=== PATIENT | male | born 1985 | race Caucasian/White ===

== ENCOUNTER 2019-08-26 09:29 | Inpatient (IN) | payer MEDICAID ==
[~2019-08-26] VITALS: Ht 182.9 cm; Wt 67.3 kg
[2019-08-26] MEDS ORDERED: SODIUM CHLORIDE 0.9% 1,000 ML IV ONE ×2 (09:51→10:45)
[2019-08-26 10:26] LABS: Hematocrit 51.4 % (41.0-53.0); Hemoglobin 17.5 g/dL (13.5-17.5); Mean Corpuscular Hemoglobin 30.9 pg (28.0-32.0); Mean Corpuscular Volume 90.8 fL (80.0-100.0); Platelet Count (auto) 448 10^3/uL (140-450); Red Blood Cells 5.66 10^6/uL (4.5-5.90); Red Cell Distribution Width 12.5 % (11.8-14.3)
[2019-08-26 10:31] LABS: Basophils % (manual) 0 (0.0-2.0); Blast Cells 0; Eosinophils % (manual) 0 (0-7); Metamyelocytes % 0; Myelocytes % 0; Promyelocytes % 0; Reactive Lymphocytes 0
[2019-08-26 10:42] LABS: Albumin 4.1 g/dL (3.4-5.0); Calcium 9.1 mg/dL (8.5-10.1); Potassium 4.8 mmol/L (3.5-5.1)
[2019-08-26 10:45] LABS: BUN/Creatinine Ratio 19.6
[2019-08-26] MEDS ORDERED: PROCHLORPERAZINE EDISYLATE 5 MG/ML 2ML VIAL IV ONE (10:45)
[2019-08-26 10:49] LABS: Bilirubin, Total 1.3 mg/dL (0.2-1.0); Total Protein 9.1 g/dL (6.4-8.2)
[2019-08-26 11:01] LABS: Band Neutrophils % (manual) 10; Lymphocytes % (manual) 3 (10.0-50.0); Monocytes % (manual) 3 (0-12)
[2019-08-26 11:52] LABS: Urine Bacteria NONE SEEN /hpf (None Seen); Urine Blood Negative /uL (Negative); Urine Specific Gravity 1.025 (1.001-1.035); Urine WBC <1 /hpf (0 - 3)
[2019-08-26] MEDS ORDERED: InsuLIN R (HUMAN) 100 UNITS in SODIUM CHL 0.9% 99 ML IV SCH ×2 (11:56→13:28)
[2019-08-26] MEDS ORDERED: ACCU-CHEK COMFORT CURVE STRIP VI SCH (12:00)
[2019-08-26] MEDS ORDERED: DEXTROSE (50%) 50ML SYRG IV PRN ×2 (12:00→13:30)
[2019-08-26] MEDS ORDERED: METOCLOPRAMIDE HCL 5MG/ml INJ 2ml VIAL IV PRN (13:30)
[2019-08-26] MEDS ORDERED: traMADol HCL 50 MG TAB PO PRN (13:30)
[2019-08-26] MEDS ORDERED: MORPHINE SULFATE 4 MG/ML SYR/VIAL IV PRN (13:30)
[2019-08-26] MEDS ORDERED: PANTOPRAZOLE 40 MG/10 ML VIAL INJ IV ONE (13:30)
[2019-08-26] MEDS ORDERED: MORPHINE SULF INJ 2 MG/ML SYRINGE 1ML IV PRN (13:30)
[2019-08-26] MEDS ORDERED: NITROGLYCERIN 0.4 MG SL TAB SL PRN (13:30)
[2019-08-26] MEDS: ACCU-CHEK COMFORT CURVE STRIP VI SCH ×8 (13:40→23:55)
[2019-08-26] MEDS: SODIUM CHLORIDE 0.9% 1,000 ML IV SCH ×3 (13:53→18:38)
[2019-08-26 17:10] VITALS: BP 108/61
--- NOTE | 2019-08-26 17:10 | NUR ---
PT RECEIVED FROM ER AT THIS TIME TO ROOM 263. SEE FLOW SHEET FOR MORE DETAILS, VSS.
[2019-08-26] MEDS ORDERED: SODIUM CHLORIDE 0.9% 1,000 ML IV SCH (17:28)
[2019-08-26 18:00] VITALS: BP 112/57
[2019-08-26 18:30] VITALS: BP 116/64
--- NOTE | 2019-08-26 19:10 | NUR ---
OPENING SHIFT RECEIVED REPORT FROM DAY SHIFT RN. ASSUMED CARE OF PATIENT. PATIENT IN BED WATCHING TV WITH NO SIGNS OR SYMPTOMS OF SOB, PAIN OR DISTRESS. CURRENTLY ON ROOM AIR, 02 SAT - 99%. RIGHT ANTECUBITAL IV - CLEAN/DRY/INTACT. UPDATED PATIENT ON PLAN OF CARE. REPOSITIONED FOR COMFORT. BED IN LOWEST POSITION, SIDE RAILS UP X2, CALL LIGHT WITHIN REACH. WILL CONTINUE TO MONITOR.
--- NOTE | 2019-08-26 19:30 | NUR ---
INSULIN GTT AC - 181, TITRATED INSULIN GTT - 2.0 UNITS PER INSULIN GTT PROTOCOL. WILL CONTINUE TO MONITOR.
[2019-08-26 19:40] VITALS: BP 107/55
--- NOTE | 2019-08-26 20:10 | NUR ---
HOSPITALIST PAGED HOSPITALIST, AWAITING CALL BACK.
--- NOTE | 2019-08-26 20:18 | NUR ---
HOSPITALIST CALLED BACK RECEIVED ORDERS FOR A CBC, LACTIC ACID, UA, BLOOD AND SPUTUM CULTURES. START LEVAQUIN 500 QD AND TYLENOL 650 PRN Q6H.
[2019-08-26] MEDS: ACETAMINOPHEN 325 MG TAB PO PRN (20:53)
[2019-08-26] MEDS ORDERED: ACETAMINOPHEN 325 MG TAB PO ONE (20:57)
[2019-08-26 21:14] LABS: Hematocrit 42.9 % (41.0-53.0); Hemoglobin 14.6 g/dL (13.5-17.5); Mean Corpuscular Hgb Conc. 34.1 g/dL (32.0-36.0); Platelet Count (auto) 370 10^3/uL (140-450); Red Blood Cells 4.71 10^6/uL (4.5-5.90); Red Cell Distribution Width 12.5 % (11.8-14.3)
[2019-08-26 21:15] LABS: Basophils % (manual) 0 (0.0-2.0); Blast Cells 0; Eosinophils % (manual) 0 (0-7); Metamyelocytes % 0; Myelocytes % 0; Promyelocytes % 0; Reactive Lymphocytes 0
[2019-08-26] MEDS: LEVOFLOXACIN 500MG 100 ML IV SCH (21:28)
[2019-08-26 21:33] LABS: Band Neutrophils % (manual) 8; Lymphocytes % (manual) 14 (10.0-50.0); Monocytes % (manual) 7 (0-12)
--- NOTE | 2019-08-26 23:54 | NUR ---
INSULIN GTT BLOOD SUGAR - 141, TITRATED INSULIN GTT TO 1UNIT/HR, PER INSULIN GTT PROTOCOL. WILL CONTINUE TO MONITOR.
[2019-08-26 23:56] VITALS: BP 100/51
[2019-08-27] MEDS: ACCU-CHEK COMFORT CURVE STRIP VI SCH ×11 (01:31→23:53)
[2019-08-27] MEDS: SODIUM CHLORIDE 0.9% 1,000 ML IV SCH ×3 (02:35→18:01)
[2019-08-27 03:44] VITALS: BP 93/61
[2019-08-27 05:31] LABS: Hematocrit 42.9 % (41.0-53.0); Hemoglobin 14.9 g/dL (13.5-17.5); Mean Corpuscular Hemoglobin 31.5 pg (28.0-32.0); Mean Corpuscular Hgb Conc. 34.6 g/dL (32.0-36.0); Platelet Count (auto) 318 10^3/uL (140-450); Red Blood Cells 4.71 10^6/uL (4.5-5.90); Red Cell Distribution Width 12.8 % (11.8-14.3); White Blood Cell 8.6 10^3/uL (4.4-10.8)
[2019-08-27 05:44] LABS: Basophils % (manual) 0 (0.0-2.0); Blast Cells 0; Metamyelocytes % 0; Myelocytes % 0; Promyelocytes % 0; Reactive Lymphocytes 0
[2019-08-27 05:47] LABS: Albumin 2.7 g/dL (3.4-5.0); Calcium 8.3 mg/dL (8.5-10.1); Magnesium 1.9 mg/dL (1.6-2.6); Potassium 3.6 mmol/L (3.5-5.1)
[2019-08-27 05:51] LABS: BUN/Creatinine Ratio 16.9; Bilirubin, Total 0.8 mg/dL (0.2-1.0); Total Protein 6.3 g/dL (6.4-8.2)
--- NOTE | 2019-08-27 06:00 | NUR ---
INSULIN GTT BLOOD SUGAR - 116, INSULIN GTT TITRATED DOWN TO 0.5UNITS/HR, PER INSULIN GTT PROTOCOL. WILL CONTINUE TO MONITOR.
[2019-08-27 06:55] LABS: Band Neutrophils % (manual) 13; Eosinophils % (manual) 1 (0-7); Lymphocytes % (manual) 19 (10.0-50.0); Monocytes % (manual) 6 (0-12)
--- NOTE | 2019-08-27 07:24 | NUR ---
END OF SHIFT REPORT GIVEN TO DAY SHIFT RN. CARE ENDORSED.
--- NOTE | 2019-08-27 07:30 | NUR ---
Patient's accucheck 101 mg/dl, Insulin drip maintained at 0.5ml/hr
[2019-08-27 08:00] VITALS: BP 97/56
--- NOTE | 2019-08-27 08:00 | NUR ---
Patient's accucheck 133mg/dl, increased Insulin drip to 1 ml/hr. Will continue to monitor.
--- NOTE | 2019-08-27 08:00 | NUR ---
Opening Shift Note Assumed care of patient, awake and alert. No S/S of distress/SOB or pain. See interventions for complete assessment. Bed locked on low position, side rails up x2, bed alarms on at all times, call de paz within reach, instructed on POC and to call for assist PRN, will continue to monitor for changes Q1hr and PRN.
--- NOTE | 2019-08-27 08:30 | NUR ---
urine sample sent to lab
[2019-08-27 08:33] LABS: Urine Bacteria FEW /hpf (None Seen); Urine Blood Negative /uL (Negative); Urine Mucus FEW (None Seen); Urine WBC 1 /hpf (0 - 3)
--- NOTE | 2019-08-27 09:00 | NUR ---
Patient's accucheck 199mg/dl, increased Insulin drip to 1.5ml. Will continue to monitor.
[2019-08-27] MEDS: LEVOFLOXACIN 500MG 100 ML IV SCH (09:15)
[2019-08-27] MEDS ORDERED: PANTOPRAZOLE 40 MG/10 ML VIAL INJ IV SCH (10:00)
--- NOTE | 2019-08-27 10:30 | NUR ---
Patient's accucheck 208mg/dl, increased Insulin drip to 2ml/hr. Will continue to monitor.
--- NOTE | 2019-08-27 11:58 | NUR ---
Patient's blood sugar 143mg/dl, decreased Insulin drip to 1ml/hr. Will continue to monitor.
[2019-08-27 12:00] VITALS: BP 109/65
[2019-08-27] MEDS: ACETAMINOPHEN 325 MG TAB PO PRN (12:04)
--- NOTE | 2019-08-27 12:04 | NUR ---
Patient's complaining of headache, Tylenol PRN given. Will continue to monitor.
--- NOTE | 2019-08-27 12:50 | NUR ---
Dr Skaggs at bedside, updated on patient's status. Patient seen and examined. Received verbal orders to start patient on Lantus and discontinue Insulin drip few hours after giving Lantus and transfer patient to Telemetry floor. Orders read back and verified. Will carry out.
[2019-08-27] MEDS ORDERED: INSULIN LANTUS (GLARGINE) 1 /0.01ml (100units/ml) SC ONE (13:00)
[2019-08-27] MEDS ORDERED: DEXTROSE (50%) 50ML SYRG IV PRN (13:00)
--- NOTE | 2019-08-27 13:30 | NUR ---
Patient's blood sugar 185mg/dl, increased Insulin drip to 2ml/hr. Will continue to monitor.
[2019-08-27 16:00] VITALS: BP 95/56
--- NOTE | 2019-08-27 16:30 | NUR ---
Insulin drip discontinued.
[2019-08-27] MEDS: InsuLIN REG 1unit/0.01ml Soln (100units/ml) SC SCH (18:00)
[2019-08-27 20:00] VITALS: BP 113/66
--- NOTE | 2019-08-27 20:00 | NUR ---
Opening Shift Note Assumed care of patient, awake and alert. No S/S of distress/SOB. Has some pain when he is doing some deep breaths, feels congested. VS stable. Sputum specimen was collected and was sent. Full assessment done. Mother at bedside. Instructed on POC and to call for assist PRN, will continue to monitor for changes Q1hr and PRN.
[2019-08-27] MEDS: INSULIN LANTUS (GLARGINE) 1 /0.01ml (100units/ml) SC SCH (22:15)
[2019-08-28] VITALS: BP 109/69
--- NOTE | 2019-08-28 | NUR ---
ROUNDS Patient is asleep, resting comfortably VS stable will continue to monitor
[2019-08-28] MEDS: InsuLIN REG 1unit/0.01ml Soln (100units/ml) SC SCH ×4 (00:12→17:45)
[2019-08-28] MEDS: SODIUM CHLORIDE 0.9% 1,000 ML IV SCH ×5 (01:24→20:44)
[2019-08-28 04:00] VITALS: BP 105/68
[2019-08-28] MEDS: ACCU-CHEK COMFORT CURVE STRIP VI SCH ×3 (05:30→17:45)
[2019-08-28 05:56] LABS: Basophils # (auto) 0 uL; Basophils % (auto) 0.2 % (0.0-2.0); Eosinophils # (auto) 0.1 uL; Eosinophils % (auto) 1.5 % (0.0-7.0); Hematocrit 36.5 % (41.0-53.0); Lymphocytes # (auto) 1.9 uL; Lymphocytes % (auto) 22.7 % (10.0-50.0); Mean Corpuscular Hemoglobin 31.9 pg (28.0-32.0); Mean Corpuscular Hgb Conc. 35.7 g/dL (32.0-36.0); Mean Corpuscular Volume 89.3 fL (80.0-100.0); Monocytes # (auto) 1.1 uL; Monocytes % (auto) 13.5 % (0.0-12.0); Neutrophils # (auto) 5.1 uL; Neutrophils % (auto) 62.1 % (37.0-80.0); Platelet Count (auto) 281 10^3/uL (140-450); Red Blood Cells 4.09 10^6/uL (4.5-5.90); Red Cell Distribution Width 12.1 % (11.8-14.3); White Blood Cell 8.3 10^3/uL (4.4-10.8)
[2019-08-28 06:20] LABS: Calcium 7.7 mg/dL (8.5-10.1)
[2019-08-28 06:33] LABS: Potassium 2.9 mmol/L (3.5-5.1)
--- NOTE | 2019-08-28 06:55 | NUR ---
PAGED HOSPITALIST FOR CRITICAL POTASSIUM LEVELS
[2019-08-28] MEDS ORDERED: POTASSIUM CHL 20 Meq TABLET PO ONE ×2 (07:15→10:30)
--- NOTE | 2019-08-28 07:20 | NUR ---
Opening Shift Note Received report from Salma FOSTER, patient awake and alert. No S/S of distress/SOB or pain. Patient saturation 96% at room air. Patient transferring to Tele floor. Gave report to Ilana FOSTER.
--- NOTE | 2019-08-28 07:30 | NUR ---
SYLVIE pt transferred to floor ISMAEL HERNANDEZ transfered to room 216 via hospital bed on chief strategy officer. All patient medications and personal belongings transferred with patient to receiving floor. Patient care transfered to Ilana FOSTER.
--- NOTE | 2019-08-28 07:40 | NUR ---
SYLVIE pt transferred to floor MARYISMAEL Valverde transferred to 216B via gurney on radiation monitor tele #[id number]. All patient medications and personal belongings transferred with patient to receiving floor. no S/S of distress at this time.
[2019-08-28] MEDS: LEVOFLOXACIN 500MG 100 ML IV SCH (09:20)
[2019-08-28] MEDS: PANTOPRAZOLE 40 MG TAB PO SCH (09:20)
[2019-08-28] MEDS ORDERED: PSEUDOEPHEDRINE HCL 30 MG TAB PO ONE (10:30)
--- NOTE | 2019-08-28 19:20 | NUR ---
Opening Shift Note Assumed care of patient, awake and alert. No S/S of distress/SOB or pain. Instructed on POC and to call for assist PRN, will continue to monitor for changes Q1hr and PRN. Side rails up x2. Bed locked in lowest position. Call light within reach.
[2019-08-28] MEDS: INSULIN LANTUS (GLARGINE) 1 /0.01ml (100units/ml) SC SCH (21:34)
[2019-08-28 22:00] VITALS: BP 109/63
[2019-08-29] MEDS: InsuLIN REG 1unit/0.01ml Soln (100units/ml) SC SCH ×2 (01:31→06:00)
[2019-08-29] MEDS: ACCU-CHEK COMFORT CURVE STRIP VI SCH ×2 (01:31→06:01)
--- NOTE | 2019-08-29 02:19 | NUR ---
Rounds Patient in bed asleep with no signs of distress/sob/pain. Will continue to monitor Q1HPRN.
[2019-08-29 05:00] VITALS: BP 115/63
[2019-08-29 05:49] LABS: BUN/Creatinine Ratio 12.5; Calcium 7.9 mg/dL (8.5-10.1); Magnesium 1.9 mg/dL (1.6-2.6); Potassium 3.2 mmol/L (3.5-5.1)
[2019-08-29] MEDS: SODIUM CHLORIDE 0.9% 1,000 ML IV SCH (06:16)
--- NOTE | 2019-08-29 07:03 | NUR ---
Endorsed care to day shift RN.
--- NOTE | 2019-08-29 07:16 | NUR ---
Opening Shift Note Assumed care of patient, awake and alert x2. No S/S of distress/SOB or pain. Instructed on POC and to call for assist PRN. Bed in lowest locked position, call light within reach, side rails up x2, fall precautions in place. Will continue to monitor for changes Q1hr and PRN.
[2019-08-29 09:00] VITALS: BP 118/70
[2019-08-29] MEDS: PANTOPRAZOLE 40 MG TAB PO SCH (09:26)
[2019-08-29] MEDS: LEVOFLOXACIN 500MG 100 ML IV SCH (09:26)
--- NOTE | 2019-08-29 10:11 | NUR ---
UPDATED MD TORRES RE: PT POTASSIUM LEVEL OF 3.2MEQ.
--- NOTE | 2019-08-29 10:15 | NUR ---
ROUNDMINGO TORRES AT BEDSIDE. NEW ORDERS RECEIVED. ALL QUESTIONS AND CONCERNS ADDRESSED AT THIS TIME.
[2019-08-29] MEDS ORDERED: POTASSIUM CHL 20 Meq TABLET PO ONE (10:30)
[2019-08-29 10:55] VITALS: BP 118/70
--- NOTE | 2019-08-29 11:20 | NUR ---
Discharge instructions given as ordered. Encourage to follow up with PMD as instructed. All questions and concerns addressed. Patient verbalized understanding. Medication reconciliation form completed and copy given to patient. Home medications held in Pharmacy returned to patient, and needed vaccines given. IV removed with catheter intact, pressure dressing applied. Telemetry unit returned to ICU. Patient ambulated to vehicle with all personal belongings, accompanied by staff and family member. No distress noted at time of departure.
== END 2019-08-29 11:20 | disposition home or self-care (01) | DRG 720 ==
LOC: ER 09:29 → TELE 09:30 → DOU IN ICU 16:54 → TELE-CENTR 08-28 07:39
PROVIDERS: ADMIT Internal Medicine; ATTEND Internal Medicine
DX: A41.9 Sepsis, unspecified organism (principal); E10.10 Type 1 diabetes mellitus with ketoacidosis without coma; J18.9 Pneumonia, unspecified organism; E87.1 Hypo-osmolality and hyponatremia; E86.0 Dehydration; E87.6 Hypokalemia; J20.9 Acute bronchitis, unspecified; Z79.4 Long term (current) use of insulin; Z82.49 Family history of ischemic heart disease and other diseases of the circulatory system; Z91.19 Patient's noncompliance with other medical treatment and regimen; Z83.3 Family history of diabetes mellitus
CPT/HCPCS: 36415; 36600; 71045; 80048; 80053; 81001; 82010; 82805; 82962; 83036; 83605; 83690; 83735; 84100; 85007; 85025; 85027; 87040; 87070; 87205; 94761; 96365; 96366; 96375; 99291; C9113; G0378; J1815; J1956